=== PATIENT | male | born 1995 | race Caucasian/White ===

== ENCOUNTER 2018-03-15 03:11 | Emergency (ER) | payer OTHER ==
[2018-03-15] MEDS: MAGNESIUM CITRATE 300 ML BTL PO (05:30)
== END 2018-03-15 05:30 | disposition home or self-care (01) ==
LOC: M ED 03:11
DX: K59.00 Constipation, unspecified (principal); Z80.0 Family history of malignant neoplasm of digestive organs
CPT/HCPCS: 74018

== ENCOUNTER 2018-08-22 11:34 | Emergency (ER) | payer OTHER ==
[~2018-08-22] VITALS: Ht 172.7 cm; Wt 84.5 kg
[2018-08-22] MEDS ORDERED: CETI10TA (11:41)
[2018-08-22] MEDS ORDERED: CEPH500C (11:41)
--- NOTE | 2018-08-22 13:59 | REP ---
CT Head without contrast HISTORY: Right posterior head trauma COMPARISON: None There is no intraparenchymal hemorrhage, acute infarct, mass or midline shift. The ventricular system is normal in appearance. There is no extra cerebral collection. There is no fracture. The visualized sinuses are clear. IMPRESSION: There is no intracranial lesion. Electronically Signed by Josiah Epps MD 08/22/2018 01:50 P
--- NOTE | 2018-08-22 14:26 | REP ---
RIGHT SHOULDER, COMPLETE: 08/22/2018 CLINICAL HISTORY: Trauma, posterior shoulder pain. FINDINGS: Three views show the AC and glenohumeral joints grossly intact without widening of the AC joint nor elevation of the clavicle. No fracture clavicle, ribs, scapula or humerus. No abnormal soft-tissue calcification. No subluxation or dislocation, visible on the scapular Y view. Good range of motion with internal and external rotation IMPRESSION: 1. Negative for any definite fracture, subluxation, dislocation, AC joint separation or other acute finding. Electronically Signed by Jerry Calixto MD 08/22/2018 07:55 P
[2018-08-22] MEDS ORDERED: ONDA4TAB6 PO (14:33)
[2018-08-22] MEDS ORDERED: NAPR-50 PO (14:33)
[2018-08-22 14:50] VITALS: BP 106/64
== END 2018-08-22 14:51 | disposition home or self-care (01) ==
LOC: M ED 11:34
DX: S09.90XA Unspecified injury of head, initial encounter (principal); S43.401A Unspecified sprain of right shoulder joint, initial encounter; W00.9XXA Unspecified fall due to ice and snow, initial encounter; Y92.59 Other trade areas as the place of occurrence of the external cause; Y99.0 Civilian activity done for income or pay

== ENCOUNTER → 2018-09-27 | Outpatient (CLI) | payer OTHER ==
[~2018-09-27] MED LIST: CEPH500C; CETI10TA; NAPR-837 PO; ONDA4TAB6 PO
--- NOTE | 2018-09-27 14:55 | REP ---
MAXILLOFACIAL CT WITHOUT CONTRAST: HISTORY: Septal deviation. The right frontal sinus is hypoplastic. 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 Minimal mucosal thickening is present in the right maxillary sinus. The remaining sinuses are clear. The osteomeatal units are patent. The middle and inferior nasal turbinates are partially paradoxical. There is ephraim bullosa of the middle nasal turbinates. There is mild deviation of the nasal septum to the left superiorly and to the right inferiorly. A spur is present arising from the right side of the nasal septum. The spur abuts the right inferior nasal turbinate. The cribriform plate, medial lucas of the orbits, and optic canals are intact. There is aeration of the right anterior clinoid process. The carotid canals form a segment of the posterolateral lucas of the sphenoid sinus. The sphenoid sinus septa insert into the internal carotid canal lucas. IMPRESSION: Sinus mucosal thickening as described above. Electronically Signed by Josiah Epps MD 09/27/2018 02:58 P
== END ==
LOC: M RAD 14:00
PROVIDERS: ATTEND Otolaryngology
DX: J01.90 Acute sinusitis, unspecified (principal); J34.2 Deviated nasal septum

== ENCOUNTER 2018-11-11 06:11 | Day surgery (SDC) | payer OTHER ==
[~2018-11-11] VITALS: Ht 172.7 cm; Wt 84.4 kg
[2018-11-11] MEDS ORDERED: LIDOCAINE 2% INJ 100 MG/5 ML SDV (FOR ANES.) As Ordered ONE (07:00)
[2018-11-11] MEDS ORDERED: PROPOFOL 200 MG/20 ML VIAL As Ordered ONE (07:00)
[2018-11-11] MEDS ORDERED: LR 1,000 ML IV ONE (07:00)
[2018-11-11] MEDS ORDERED: dexameTHASONE 4 MG/ML 1ML VIAL (J1100) As Ordered ONE (07:00)
[2018-11-11] MEDS ORDERED: ROCURONIUM BROMIDE 50 MG/5 ML VIAL As Ordered ONE (07:00)
[2018-11-11] MEDS ORDERED: ONDANSETRON 4MG/2ML VIAL (J2405) As Ordered ONE (07:00)
[2018-11-11] MEDS ORDERED: MIDAZOLAM INJ 2 MG/2 ML VIAL (J2250) As Ordered ONE (07:01)
[2018-11-11] MEDS ORDERED: fentaNYL 100 MCG/2 ML INJECTION (J3010) As Ordered ONE ×3 (07:01→09:07)
[2018-11-11] MEDS ORDERED: SUGAMMADEX SODIUM 500 MG/5 ML VIAL (BRIDION) As Ordered ONE (07:01)
[2018-11-11] MEDS ORDERED: LIDOCAINE 1% MDV 20ML VIAL As Ordered ONE (07:52)
[2018-11-11] MEDS ORDERED: BUPIVACAINE HCL 0.5% 30 ML VIAL As Ordered ONE (07:53)
[2018-11-11] MEDS ORDERED: ACETAMINOPHEN 1000MG 100ML IV BTL (OFIRMEV) (J0131 PER 10MG) As Ordered ONE (09:09)
[2018-11-11] MEDS ORDERED: OXYMETAZOLINE NASAL SPRAY (AFRIN) As Ordered ONE (09:17)
[2018-11-11] MEDS ORDERED: diphenhydrAMINE INJ 50MG/ML VIAL (J1200) As Ordered ONE (09:22)
[2018-11-11] MEDS ORDERED: PERCOCET 5MG/325MG TAB As Ordered ONE (10:08)
[2018-11-11] MEDS ORDERED: ONDANSETRON 4MG/2ML VIAL (J2405) IV PRN (10:45)
[2018-11-11] MEDS ORDERED: METOCLOPRAMIDE INJ 10MG/2ML VIAL (J2765) IV PRN (10:45)
[2018-11-11] MEDS ORDERED: LR 1,000 ML IV SCH (10:45)
[2018-11-11] MEDS ORDERED: PERCOCET 5MG/325MG TAB PO PRN (10:45)
[2018-11-11] MEDS ORDERED: HYDROcodone/APAP LIQUID 7.5-325MG 15ML UDC (LORTAB ELIXIR) PO PRN (10:45)
[2018-11-11] MEDS ORDERED: fentaNYL 100 MCG/2 ML INJECTION (J3010) IV PRN (10:45)
[2018-11-11 11:25] VITALS: BP 129/77
--- NOTE | 2018-11-12 08:03 | RO ---
DATE OF PROCEDURE: 11/11/2018 PREOPERATIVE DIAGNOSES: Tonsillar hypertrophy and massive adenoid hypertrophy. POSTOPERATIVE DIAGNOSES: Tonsillar hypertrophy and massive adenoid hypertrophy. The massive adenoid hypertrophy was completely obstructing the nasal choanae bilaterally and actually growing into the nasal choanae from the posterior to anterior completely obstructing it. OPERATION PERFORMED: Tonsillectomy and adenoidectomy. SURGEON: Angel Anna Jr., MD INDICATIONS FOR PROCEDURE: Massive adenoid hypertrophy along with tonsillar hypertrophy and inability to breathe through the nasal cavity with nasal congestion. ANESTHESIA: General via endotracheal tube by Dr. Padilla and [employer]. PROCEDURE IN DETAIL: After time-out had been performed, the patient was positively identified. The patient was prepped and draped in usual fashion after being induced and intubated by the anesthesiologist in the normal fashion. The bed was turned 90 degrees. The patient was placed on a shoulder roll as well as a doughnut and placed in the Chrissy position. A Francisco J-Ernst grooved tongue blade was utilized to open up the oral cavity for exposure of the adenoid tissue as well as the tonsils. A red rubber Mari was placed through the left nasal cavity, brought to the oral cavity for soft palate retraction. Once this was obtained and the visualization showed 100% obstruction of the choanae secondary to the massive adenoid hypertrophy, adenoid curettes large were used in successive fashions to smaller ones to remove the adenoid tissue. Forceps were used to grab the bigger pieces and smaller pieces as well. Four tonsillar sponges were placed in the nasopharynx for hemostasis and pressure was placed. Attention then was drawn to the left tonsil where utilizing a Coblation device. EVAC-70 wand was utilized with Coblation settings of 7 coblate, 3 coag and the left tonsil was dissected out of the tonsillar fossa without any bleeding or significant issues. Attention then was drawn on the right side in a similar fashion. The right side was dissected out and there was no bleeding of any significance. After some time had passed, attention was drawn to removing the tonsillar sponges one at a time from the posterior nasopharynx with the suction cautery initially at 40 but then increased to 45. Coagulation of the nasopharynx was done to control the bleeding. There was still residual adenoid tissue that had to be teased out of the posterior choanae with suction and cauterized. There still was the base that was bleeding. Therefore smaller curette was utilized to curette this area down at the base on both the right and left side showing full exposure. Once this was done, four packs were placed back in, again pressure was placed in to control the bleeding and left in for at least 5 minutes. This was done in two more fashion after spot coagulation was done, but there was still continuous oozing after the third time. Solution of 50% 1% lidocaine and 50% .25% bupivacaine was placed into the tonsillar fossa with a 27 gauge needle. Approximately 3.5 to 4 mL was injected total for postop pain control. Once this was done, the packs were slowly removed again with the suction cautery and then spot coagulation was done. At this point, it appears that the bleeding was under control. This was approximately 75-100 mL of blood loss from the adenoid tissue alone. Cold saline was flushed to the nasal cavity as well as to the oral cavity and again any further bleeding in the posterior oropharynx was done by spot coagulation. He tolerated this well. Valsalva maneuvers were performed bringing him up to 35 cm and no further bleeding could be instigated, and at this point, spray of Afrin was placed in the right nasal cavity as well as the left nasal cavity because of turbinate hypertrophy and swelling to try and aid in his postoperative ability to breathe. At this point, all bleeding was controlled. Control of the patient was turned over to the nuclear plant instrument technician. There were no problems. No complications. SANDHYA
== END 2018-11-11 11:35 | disposition home or self-care (01) ==
LOC: M SDC 06:11
PROVIDERS: ATTEND Otolaryngology
DX: J35.3 Hypertrophy of tonsils with hypertrophy of adenoids (principal); G47.30 Sleep apnea, unspecified
CPT/HCPCS: 42821; 88302; J0131; J1100; J1200; J2250; J2405; J3010

== ENCOUNTER 2018-11-17 22:41 | Emergency (ER) | payer OTHER ==
[~2018-11-17] VITALS: Ht 172.7 cm; Wt 84.5 kg
[2018-11-17 22:42] VITALS: BP 134/79
[2018-11-17] MEDS ORDERED: HYDR1SOL49 PO (22:46)
[2018-11-17] MEDS ORDERED: LIDO1SOL8 PO (22:46)
== END 2018-11-18 01:07 | disposition left against medical advice (07) ==
LOC: M ED 22:41
DX: R07.0 Pain in throat (principal); Z53.21 Procedure and treatment not carried out due to patient leaving prior to being seen by health care provider

== ENCOUNTER 2019-04-06 08:09 | Emergency (ER) | payer OTHER ==
[~2019-04-06] VITALS: Ht 172.7 cm; Wt 91.0 kg
[~2019-04-06 08:09] MED LIST changes: +HYDR1SOL49 PO; +LIDO1SOL8 PO
[2019-04-06] MEDS ORDERED: FLUTISP (08:17)
[2019-04-06] MEDS ORDERED: ALL10TAB29 (08:17)
[2019-04-06 08:51] LABS: BASO # 0.1 10^3/uL (0.0-0.2); BASO % 0.6 % (0.0-1.0); EOS # 0.1 10^3/uL (0.0-0.5); EOS % 1.8 % (0.0-3.0); HEMATOCRIT 45.4 % (42.0-52.0); HEMOGLOBIN 14.7 g/dl (13.5-17.5); LYMPH # 2.5 10^3/uL (1.5-5.0); LYMPH % 31.6 % (24.0-44.0); MEAN CORPUSCULAR HEMOGLOBIN 26.1 pg (27.0-33.0); MEAN CORPUSCULAR HGB CONC 32.4 g/dl (32.0-36.5); MEAN CORPUSCULAR VOLUME 80.6 fl (80.0-96.0); MONO # 0.5 10^3/uL (0.0-0.8); MONO % 6.7 % (0.0-5.0); NEUTROPHILS # 4.6 10^3/uL (1.5-8.5); NEUTROPHILS % 59.2 % (36.0-66.0); PLATELET COUNT, AUTOMATED 178 10^3/uL (150-450); RED BLOOD COUNT 5.63 10^6/uL (4.30-6.10); WHITE BLOOD COUNT 7.8 10^3/uL (4.0-10.0)
[2019-04-06 09:15] LABS: ALT/SGPT 26 U/L (12-78); AMYLASE 23 U/L (25-115); BILIRUBIN,DIRECT < 0.1 MG/DL (0.0-0.2); BILIRUBIN,TOTAL 0.3 MG/DL (0.2-1.0); LIPASE 100 U/L (73-393); TOTAL PROTEIN 7.6 GM/DL (6.4-8.2)
[2019-04-06 09:47] LABS: APPEARANCE, URINE CLEAR (CLEAR); BACTERIA, URINE AUTO NEGATIVE (NEGATIVE); BILIRUBIN, URINE AUTO NEGATIVE (NEGATIVE); BLOOD, URINE BLOOD NEGATIVE (NEGATIVE); COLOR, URINE YELLOW (YELLOW); GLUCOSE, URINE (UA) AUTO NEGATIVE (NEGATIVE); KETONE, URINE AUTO NEGATIVE (NEGATIVE); LEUKOCYTE ESTERASE, URINE AUTO NEGATIVE (NEGATIVE); MUCUS, URINE SMALL (NEGATIVE); NITRITE, URINE AUTO NEGATIVE (NEGATIVE); PROTEIN, URINE AUTO NEGATIVE (NEGATIVE); RBC, URINE AUTO 0 /HPF (0-3); SPECIFIC GRAVITY URINE AUTO 1.017 (1.002-1.035); SQUAMOUS EPITHELIAL CELL UR AU 0 /HPF (0-6); UROBILINOGEN, URINE AUTO 0.2 mg/dL (0.0-2.0); WBC, URINE AUTO 1 /HPF (0-3)
[2019-04-06] MEDS ORDERED: NS 1,000 ML IV ONE (10:00)
[2019-04-06] MEDS ORDERED: ISOVUE-370 76% 100ML VIAL (Q9967) As Ordered ONE (10:02)
[2019-04-06 10:44] LABS: INR 1.15; PROTHROMBIN TIME 14.5 SECONDS (11.8-14.0)
[2019-04-06 10:45] LABS: PARTIAL THROMBOPLASTIN TIME 31.8 SECONDS (25.0-38.4)
--- NOTE | 2019-04-06 10:51 | REP ---
CT ABDOMEN/PELVIS WITH CONTRAST: TECHNIQUE: Axial contrast enhanced images from the lung bases to the pubic symphysis using 100 mL Isovue 370 intravenous contrast material with multiplanar reformations. Visualized lung bases are clear. The liver, spleen, adrenals, pancreas, and kidneys are normal in appearance. There is no hydronephrosis. Gallbladder is grossly unremarkable. No biliary dilatation is seen. There is a slightly enlarged portal lymph node, 1.3 cm in short axis. No other adenopathy is seen. Several subcentimeter mesenteric lymph nodes are seen. I see no bowel wall thickening. The appendix is normal. No pelvic mass is seen. Urinary bladder is mildly distended and grossly unremarkable. IMPRESSION: Slightly enlarged portal lymph node. No acute abnormality is detected. Electronically Signed by Jose R Parmar MD 04/08/2019 10:19 A
[2019-04-06 11:31] VITALS: BP 126/73
== END 2019-04-06 11:36 | disposition home or self-care (01) ==
LOC: M ED 08:09
DX: K59.00 Constipation, unspecified (principal); K92.1 Melena; Z79.899 Other long term (current) drug therapy
CPT/HCPCS: 74177; 80047; 80076; 81001; 82150; 83690; 85025; 85610; 85730; 96360; 99284; Q9967

== ENCOUNTER 2019-04-28 08:20 | Day surgery (SDC) | payer OTHER ==
[~2019-04-28] VITALS: Ht 172.7 cm; Wt 91.1 kg
[~2019-04-28 08:20] MED LIST changes: +ALL10TAB29 PO; +FLUTISP; +LR 1,000 ML IV SCH
[2019-04-28] MEDS ORDERED: OXYMETAZOLINE NASAL SPRAY (AFRIN) As Ordered ONE (09:19)
[2019-04-28] MEDS ORDERED: LIDOCAINE W/EPINEPHRINE 1% 20ML VIAL As Ordered ONE (09:19)
[2019-04-28] MEDS ORDERED: ROCURONIUM BROMIDE 50 MG/5 ML VIAL As Ordered ONE (09:23)
[2019-04-28] MEDS ORDERED: MIDAZOLAM INJ 2 MG/2 ML VIAL (J2250) As Ordered ONE (09:23)
[2019-04-28] MEDS ORDERED: LIDOCAINE 2% INJ 100 MG/5 ML SDV (FOR ANES.) As Ordered ONE (09:23)
[2019-04-28] MEDS ORDERED: fentaNYL 250 MCG/5 ML INJECTION (J3010) As Ordered ONE (09:23)
[2019-04-28] MEDS ORDERED: PROPOFOL 200 MG/20 ML VIAL As Ordered ONE ×2 (09:23→10:06)
[2019-04-28] MEDS ORDERED: dexameTHASONE 4 MG/ML 1ML VIAL (J1100) As Ordered ONE (09:50)
[2019-04-28] MEDS ORDERED: SODIUM CHLORIDE 0.9% NASAL GEL 15GM (AYR) As Ordered ONE (10:04)
[2019-04-28] MEDS ORDERED: NEOSTIGMINE 10 MG/10 ML VIAL (J2710) As Ordered ONE ×2 (10:05→10:06)
[2019-04-28] MEDS ORDERED: ONDANSETRON 4MG/2ML VIAL (J2405) As Ordered ONE (10:05)
[2019-04-28] MEDS ORDERED: GLYCOPYRROLATE INJ 0.2 MG/ML 2 ML VIAL As Ordered ONE (10:05)
[2019-04-28] MEDS ORDERED: METHYLENE BLUE 0.5% (5MG/ML) 10 ML AMP (PROVAYBLUE)(Q9968 PER 1MG) As Ordered ONE (11:03)
[2019-04-28] MEDS ORDERED: fentaNYL 100 MCG/2 ML INJECTION (J3010) As Ordered ONE (11:10)
[2019-04-28] MEDS: fentaNYL 100 MCG/2 ML INJECTION (J3010) IV PRN ×4 (11:11→11:28)
[2019-04-28] MEDS ORDERED: oxyCODONE 5MG TAB As Ordered ONE (11:33)
[2019-04-28] MEDS: oxyCODONE 5MG TAB PO PRN ×2 (11:38→12:13)
[2019-04-28] MEDS ORDERED: ONDANSETRON 4MG/2ML VIAL (J2405) IV PRN (11:45)
--- NOTE | 2019-04-28 12:05 | RO ---
DATE OF PROCEDURE: 04/28/2019 PREOPERATIVE DIAGNOSIS: Septal deviation. POSTOPERATIVE DIAGNOSIS: Septal deviation. OPERATION PERFORMED: 1. Septoplasty. 2. Bilateral inferior turbinoplasties. SURGEON: Angel Anna Jr, MD ANESTHESIA: General via endotracheal tube. INDICATIONS FOR PROCEDURE: Nasal obstruction. PROCEDURE IN DETAIL: With the patient in supine position after being induced, intubated, prepped, and draped in usual fashion, left nasal cavity was injected with 1% 100,000 epinephrine as well as the right mucoperichondrium, mucoperiosteum after Afrin had been placed in both nasal cavities. 7 mL was injected with a 27-gauge needle. Patient was prepped and draped in usual fashion. A left hemitransfixion incision ensued. Mucoperichondrium, mucoperiosteum, bony cartilaginous junctions were . There was significant deviation to the right going fairly posteriorly as well with the bony septum going in that direction. The patient had the Austin elevator used to separate the bony cartilaginous junctions inferiorly as well as posteriorly. Mucoperiosteum as well as mucoperichondrium had been elevated bilaterally. Utilizing the Rick Striker superiorly, the perpendicular plate of the ethmoid was released and then inferiorly Rick-Flor was used as well as the Rory more deep for the continuing posterior bony septal spur. Once this was completely removed and there was a good adequate airway, the inferior turbinates were lateralized and injected with a milliliter of 1% lidocaine with a 100,000 epinephrine, and then utilizing the Reflex 45, the inferior turbinates were coblated with setting of 4 coblate, 2 for coag. Once this was done, there were three passes made on the left side and then two on the right side. The septocolumellar stitches were closed with two #3-0 chromic septocolumellar stitches followed by Gómez nasal stents with straws, which were sutured with #4-0 transseptally. At this point, the straw areas were irrigated with copious saline, at least three syringes, to make sure that there was no blood clot present in there and, at this point, this area was suctioned and was widely patent. NasoPore was placed around the Gómez nasal straws and then a mustache dressing was applied. Estimated blood loss was approximately 15-20 mL. There were no complications.
[2019-04-28 13:15] VITALS: BP 145/94
== END 2019-04-28 13:19 | disposition home or self-care (01) ==
LOC: M SDC 08:20
PROVIDERS: ATTEND Otolaryngology
DX: J34.2 Deviated nasal septum (principal); J34.3 Hypertrophy of nasal turbinates; G47.30 Sleep apnea, unspecified; Z79.899 Other long term (current) drug therapy
CPT/HCPCS: 30520; 30802; 88300; J1100; J2250; J2405; J2710; J3010; Q9968

== ENCOUNTER 2019-05-30 17:38 | Emergency (ER) | payer OTHER ==
[~2019-05-30] VITALS: Ht 172.7 cm; Wt 86.4 kg
[2019-05-30 17:38] VITALS: BP 164/81
[~2019-05-30 17:38] MED LIST changes: -LR 1,000 ML IV SCH
[2019-05-30] MEDS ORDERED: ONDANSETRON 4 MG ORAL DISINTEGRATING TAB (Q0162 PER 1MG) PO ONE (18:00)
--- NOTE | 2019-05-30 18:30 | REPVR ---
PROCEDURE INFORMATION: Exam: CT Head Without Contrast Exam date and time: 05/30/2019 6:04 PM Age: 23 years old Clinical indication: Injury or trauma; Fall; Initial encounter; Blunt trauma (contusions or hematomas); Additional info: Head injury TECHNIQUE: Imaging protocol: Computed tomography of the head without contrast. Radiation optimization: All CT scans at this facility use at least one of these dose optimization techniques: automated exposure control; mA and/or kV adjustment per patient size (includes targeted exams where dose is matched to clinical indication); or iterative reconstruction. COMPARISON: CT Head without contrast 08/22/2018 1:27 PM FINDINGS: Brain: No hemorrhage. Unremarkable white matter for the patient's age. No mass effect. No evolving territorial infarct. Ventricles: No ventriculomegaly. Bones/joints: No acute calvarial fracture seen. Sinuses: Visualized sinuses are unremarkable. No fluid levels. Mastoid air cells: Visualized mastoid air cells are well aerated. Soft tissues: Unremarkable. IMPRESSION: No acute intracranial abnormality seen. Electronically signed by: Shikha Sharma On 05/30/2019 18:30:02 PM
[2019-05-30] MEDS ORDERED: ONDA4TAB6 PO (18:43)
== END 2019-05-30 18:49 | disposition home or self-care (01) ==
LOC: M ED 17:38
DX: S01.01XA Laceration without foreign body of scalp, initial encounter (principal); W22.8XXA Striking against or struck by other objects, initial encounter; Y92.89 Other specified places as the place of occurrence of the external cause
CPT/HCPCS: 70450; 99282; Q0162